=== PATIENT | female | born 1955 | race Caucasian/White ===

== ENCOUNTER 2019-01-21 11:30 | Inpatient (IN) | payer OTHER ==
[~2019-01-21] VITALS: Ht 172.7 cm; Wt 90.7 kg
[2019-01-21] MEDS ORDERED: TOPROL XL25 M1 (14:51)
[2019-01-21] MEDS ORDERED: LIPITOR20 MG (14:51)
[2019-01-21] MEDS ORDERED: VITAMIN D1000 UNIT (14:52)
== END 2019-01-28 19:38 | disposition home or self-care (01) | DRG 331 ==
LOC: O/R 01-25 05:22 → SURH 01-25 05:22
PROVIDERS: ADMIT Colon & Rectal Surgery
PROC: 0DJD8ZZ Inspection of Lower Intestinal Tract, Via Natural or Artificial Opening Endoscopic (ICD-10-PCS; 2019-01-25)
PROC: 0DTN4ZZ Resection of Sigmoid Colon, Percutaneous Endoscopic Approach (ICD-10-PCS; principal; 2019-01-25 16:30)
DX: D12.5 Benign neoplasm of sigmoid colon (principal); K57.50 Diverticulosis of both small and large intestine without perforation or abscess without bleeding; E83.42 Hypomagnesemia; I10 Essential (primary) hypertension; E78.00 Pure hypercholesterolemia, unspecified

== ENCOUNTER 2021-05-10 12:00 | Day surgery (SDC) | payer OTHER ==
[~2021-05-10 12:00] MED LIST: LIPITOR20 MG; TOPROL XL25 M1; VITAMIN D1000 UNIT
== END 2021-05-10 12:29 | disposition home or self-care (01) ==
LOC: CIR.AMB 12:00
PROVIDERS: ATTEND Colon & Rectal Surgery
DX: K57.32 Diverticulitis of large intestine without perforation or abscess without bleeding (principal); K64.1 Second degree hemorrhoids; Z20.822 Contact with and (suspected) exposure to COVID-19